=== PATIENT | male | born 1990 | race Caucasian/White ===

== ENCOUNTER 2016-03-15 00:49 | Emergency (ER) | payer SELFPAY ==
[2016-03-15] MEDS ORDERED: HYDROmorphone HCL INJ 2 MG/ML VIAL ONE (00:57)
--- NOTE | 2016-03-15 01:08 | ED.PDOC ---
History of Present Illness - General Time Seen by Provider: 03/15/16 01:03 Source: patient Exam Limitations: no limitations - History of Present Illness Initial Comments: the patient is a 25-year-old male presenting to the emergency roomr sustaining injuries to weeks ago while working on it all [employer]. It appears that he dislocated his proximal interphalangeal joint of the fourth digit left hand. It apparently remained dislocated for between one and 2 days. He is still having some swelling of the joint and some pain in that joint. He is therefore concerned about it. No other deformity currently other than swelling. There is mild reduction in sensation distally. Additionally he has a small corneal abrasion at 12:00 on his left eye from looking up and having a piece of debris fall into his eye while on the job 2 weeks ago. The area seems to be getting better but then he started back wearing his contacts that he got worse when he took his contacts out better than previous contacts back in to get worse so he took his contacts out. He is currently not wearing a contact in the eye. Severity: moderate Improving Factors: nothing Worsening Factors: nothing Associated Symptoms: denies symptoms Allergies/Adverse Reactions: Allergies NO KNOWN ALLERGY Allergy (Verified 02/08/16 18:16) Home Medications: Ambulatory Orders Erythromycin Opth Oint 1 gm OPHTH Q6H 10 Days 03/15/16 Review of Systems - Review of Systems Constitutional: States: no symptoms reported EENTM: States: eye pain, blurred vision Respiratory: States: no symptoms reported Cardiology: States: no symptoms reported Gastrointestinal/Abdominal: States: no symptoms reported Genitourinary: States: no symptoms reported Musculoskeletal: States: see HPI Skin: States: no symptoms reported Neurological: States: no symptoms reported Endocrine: States: no symptoms reported All other Systems: No Change from Baseline Past Medical History (General) - Patient Medical History Hx Stroke: No Hx Congestive Heart Failure: No Hx Diabetes: No - Vaccination History Hx Influenza Vaccination: No Hx Pneumococcal Vaccination: No - Social History Hx Tobacco Use: No Family Medical History - Family History Father Living Status: Still Living Hx Family Diabetes: Yes Physical Exam - Physical Exam General Appearance: Alert, Comfortable, No apparent distress Eye Exam: right normal, left other - 1 mm area of corneal abrasion at 12:00. Visual acuity is preserved. Ears, Nose, Throat: hearing grossly normal, normal ENT inspection, normal pharynx Neck: full range of motion Respiratory: no respiratory distress, no accessory muscle use Cardiovascular/Chest: normal peripheral pulses, no edema Peripheral Pulses: radial,right: 2+, radial,left: 2+ Extremity: normal range of motion, no pedal edema, no calf tenderness, normal capillary refill, other - fourth digit left hand with mild swelling and mild reduction in range of motion. Mild decreased sensation distally. Capillary refill is normal. Neurologic: alert, normal mood/affect, oriented x 3 Skin Exam: normal color Comments: X-ray of the hand left shows no evidence of fracture dislocation currently. the patient is a 25-year-old male who is experiencing some joint inflammation after the fourth digit of the left hand was dislocated and reduced 2 weeks ago. Pain will likely be experienced along with swelling for the next month. He can expect early arthritis in that joint. He needs to do range of motion exercises with the joint. Anti-inflammatory such as ibuprofen may help. The patient also appears to have a very small corneal abrasion at 12:00 on his left eye from essentially blunt trauma. He'll be placed on erythromycin ointment for one week. He needs to use preservative-free rewetting drops every few hours to allow for healing. He needs to not use the contacts until it is healed up. If there is any question of it healing then he needs to see an manager heavy duty or revisit his primary care doctor. Departure - Departure Clinical Impression: Finger contusion Qualifiers: Encounter type: initial encounter Finger: ring finger Damage to nail status: without damage Laterality: left Qualifier Code: (S60.042A) Contusion of left ring finger without damage to nail, initial encounter Corneal abrasion, left Qualifiers: Encounter type: initial encounter Qualifier Code: (S05.02XA) Injury of conjunctiva and corneal abrasion without foreign body, left eye, initial encounter Disposition: Discharge to Home or Self Care Condition: Fair Instructions: DI for Corneal Abrasion Diet: regular diet Activity: increase activity as tolerated Prescriptions: Erythromycin Opth Oint 1 gm OPHTH Q6H 10 Days Home Medications: Ambulatory Orders Erythromycin Opth Oint 1 gm OPHTH Q6H 10 Days 03/15/16 Additional Instructions: the patient is a 25-year-old male who is experiencing some joint inflammation after the fourth digit of the left hand was dislocated and reduced 2 weeks ago. Pain will likely be experienced along with swelling for the next month. He can expect early arthritis in that joint. He needs to do range of motion exercises with the joint. Anti-inflammatory such as ibuprofen may help. The patient also appears to have a very small corneal abrasion at 12:00 on his left eye from essentially blunt trauma. He'll be placed on erythromycin ointment for one week. He needs to use preservative-free rewetting drops every few hours to allow for healing. He needs to not use the contacts until it is healed up. If there is any question of it healing then he needs to see an manager heavy duty or revisit his primary care doctor.
[2016-03-15] MEDS ORDERED: HYDROmorphone HCL INJ 2 MG/ML VIAL IV SCH (01:30)
[2016-03-15 01:48] VITALS: TEMP 97.9
--- NOTE | 2016-03-15 01:53 | RAD ---
EXAM DESCRIPTION: XR KNEE 1-2 VIEWS CLINICAL HISTORY: 25 y/o , M, post reduction right lateral patellar dislocation COMPARISON: None. FINDINGS: There is no acute fracture or dislocation. There is a small joint effusion. There is no significant soft tissue swelling. The bony alignment is normal. There are no significant degenerative changes. IMPRESSION: 1. No acute fracture or dislocation. 2. Small joint effusion. Electronically signed by: Myrna Jha MD 03/15/2016 01:51
[2016-03-15 02:29] VITALS: BP 114/81; O2SAT 97
== END 2016-03-15 02:25 | disposition home or self-care (01) ==
LOC: ER 00:49
DX: S83.014A Lateral dislocation of right patella, initial encounter (principal); Y93.83 Activity, rough housing and horseplay
CPT/HCPCS: 73560; J1170

== ENCOUNTER → 2016-04-09 | Outpatient (CLI) | payer SELFPAY ==
--- NOTE | 2016-04-09 10:15 | RAD ---
EXAM DESCRIPTION: XR PELVIS 1-2 VIEWS CLINICAL HISTORY: RIGHT HIP PAIN COMPARISON: None Available. TECHNIQUE: AP pelvis. FINDINGS: There is no bone, joint, or soft tissue abnormality. IMPRESSION: Normal pelvis Electronically signed by: Reji Francisco MD 04/09/2016 10:13
--- NOTE | 2016-04-09 10:16 | RAD ---
EXAM DESCRIPTION: XR KNEE 1-2 VIEWS CLINICAL HISTORY: PAIN IN RIGHT KNEE COMPARISON: 15 March 2016. TECHNIQUE: Four views. FINDINGS: Soft tissue swelling is observed about the knee. A joint effusion is evident. No fracturing is seen. IMPRESSION: Soft tissue swelling is observed about the knee and a joint effusion is evident. No fracturing is detected. Electronically signed by: Reji Francisco MD 04/09/2016 10:15
== END | disposition home or self-care (01) ==
LOC: RAD 08:05
PROVIDERS: ATTEND Orthopaedic Surgery
DX: M25.561 Pain in right knee (principal); M25.559 Pain in unspecified hip

== ENCOUNTER 2017-03-09 04:53 | Emergency (ER) | payer SELFPAY ==
[2017-03-09 05:06] VITALS: TEMP 98.6
--- NOTE | 2017-03-09 05:21 | ED.PDOC ---
History of Present Illness - General Chief Complaint: Respiratory Problem Stated Complaint: sinus congestion, cough, fever x 2 days Time Seen by Provider: 03/09/17 05:03 Source: patient Exam Limitations: no limitations - History of Present Illness Comments: TWO DAY HISTORY OF MYALGIAS, LOW GRADE FEVER, CHILLS RIGHT SIDED FACIAL AND EAR PRESSURE. HE VOICES THAT AROUND [place]EMEH HE HAD A SIMILAR EPISODE BUT LESS SEVERE AND IT SUBSIDED ON ITS OWN. Timing/Duration: yesterday Cough Quality/Degree: dry cough Worsening Factors: nothing Associated Symptoms: denies symptoms Respiratory Risk Factors: no cause identified Allergies/Adverse Reactions: Allergies NO KNOWN ALLERGY Allergy (Verified 03/15/16 01:42) Home Medications: Ambulatory Orders Amoxicillin & Pot Clavulanate [Augmentin Xr 1000-62.5 mg] 1 tab PO BID #20 tab 03/09/17 Oseltamivir Capsule [Tamiflu] 75 mg PO DAILY 10 Days #10 capsule 03/09/17 Review of Systems - Review of Systems Constitutional: States: fever, malaise, weakness EENTM: States: nose congestion, throat pain Respiratory: States: cough Cardiology: States: no symptoms reported Gastrointestinal/Abdominal: States: no symptoms reported Genitourinary: States: no symptoms reported Musculoskeletal: States: no symptoms reported Skin: States: no symptoms reported Neurological: States: no symptoms reported Endocrine: States: no symptoms reported Hematologic/Lymphatic: States: no symptoms reported Past Medical History (General) - Patient Medical History Hx Seizures: No Hx Stroke: No Hx Dementia: No Hx Asthma: No Hx of COPD: No Hx Cardiac Disorders: No Hx Congestive Heart Failure: No Hx Pacemaker: No Hx Hypertension: No Hx Thyroid Disease: No Hx Diabetes: No Hx Gastroesophageal Reflux: No Hx Renal Disease: No Hx Cancer: No Hx of HIV: No Hx Hepatitis C: No Hx MRSA: No Surgical History: no surgical history - Vaccination History Hx Tetanus, Diphtheria Vaccination: No Hx Influenza Vaccination: No Hx Pneumococcal Vaccination: No Immunizations Up to Date: Yes - Social History Hx Tobacco Use: No Hx Chewing Tobacco Use: No Hx Alcohol Use: No - Female History Patient : No Family Medical History - Family History Father Living Status: Still Living Hx Family Diabetes: Yes Physical Exam - Physical Exam General Appearance: Anxious, Well Developed, Well Groomed, Well Hydrated, Well Nourished Eye Exam: bilateral normal ENT Exam: normal ENT inspection, TMs normal, pharynx normal, nasal congestion Neck: non-tender, full range of motion, supple, normal inspection Respiratory: chest non-tender, lungs clear, normal breath sounds, no respiratory distress Cardiovascular/Chest: normal peripheral pulses, regular rate, rhythm, no edema, no gallop, no JVD, no murmur Gastrointestinal/Abdominal: non tender, soft Extremity: normal range of motion, non-tender, normal inspection Skin Exam: normal color Lymphatic: no adenopathy Progress - Results/Orders Results/Orders: LAB IS REPORTED: INFLUENZA B Departure - Departure Clinical Impression: Influenza B Sinusitis Qualifiers: Sinusitis location: maxillary Chronicity: acute Recurrence: non-recurrent Qualified Code(s): J01.00 - Acute maxillary sinusitis, unspecified Time of Disposition: 05:52 Disposition: Discharge to Home or Self Care Departure Forms: ED Discharge - Pt. Copy, Patient Portal Self Enrollment Diet: resume usual diet Activity: increase activity as tolerated Prescriptions: Amoxicillin & Pot Clavulanate [Augmentin Xr 1000-62.5 mg] 1 tab PO BID #20 tab Oseltamivir Capsule [Tamiflu] 75 mg PO DAILY 10 Days #10 capsule Home Medications: Ambulatory Orders Amoxicillin & Pot Clavulanate [Augmentin Xr 1000-62.5 mg] 1 tab PO BID #20 tab 03/09/17 Oseltamivir Capsule [Tamiflu] 75 mg PO DAILY 10 Days #10 capsule 03/09/17
[2017-03-09 06:03] VITALS: BP 123/80; O2SAT 94
== END 2017-03-09 06:03 | disposition home or self-care (01) ==
LOC: ER 04:53
DX: J10.1 Influenza due to other identified influenza virus with other respiratory manifestations (principal); J01.00 Acute maxillary sinusitis, unspecified